=== PATIENT | female | born 1965 | race Caucasian/White ===

== ENCOUNTER 2017-08-01 10:04 | Day surgery (SDC) | payer OTHER ==
[~2017-08-01] VITALS: Ht 157.5 cm; Wt 61.2 kg
[~2017-08-01 10:04] MED LIST: ACTONEL35 MG PO; BUSPAR10 MG PO; CALCIUM + D3 E1 EACH PO; CHOLEST OFF PL450 MG PO; CINNAMON500 MG PO; FLUTICASONE PRO16 GM BOTH NARES; LEXAPRO20 MG PO; MAGNESIUM400 M1 PO; MELATIN3 MG PO; OMEPRAZOLE40 M1 PO; ONE DAILY WOME1 EACH PO; PRAVACHOL10 MG PO; RED YEAST RICE600 MG PO; TURMERIC500 MG PO; VIVELLE-DOT0.0375 MG TD; ZANTAC300 MG PO; ZYRTEC10 M3 PO
[2017-08-01 10:29] VITALS: BP 117/66
[2017-08-01 15:35] VITALS: BP 103/65
[2017-08-01 16:35] VITALS: BP 112/63
[2017-08-01 17:58] VITALS: BP 112/63
== END 2017-08-01 18:05 | disposition home or self-care (01) ==
LOC: SDC 10:04
DX: N39.3 Stress incontinence (female) (male) (principal); N81.10 Cystocele, unspecified; N36.41 Hypermobility of urethra; K21.9 Gastro-esophageal reflux disease without esophagitis; F41.9 Anxiety disorder, unspecified; R00.2 Palpitations; M85.80 Other specified disorders of bone density and structure, unspecified site
CPT/HCPCS: 87086; J0690; J1100; J1885; J2250; J2405; J2550; J2765; J3010